=== PATIENT | female | born 1980 | race Two or more races ===

== ENCOUNTER 2019-06-15 02:33 | Emergency (ER) | payer OTHER ==
[2019-06-15 04:10] VITALS: BP 104/63; PULSE 81; TEMP 98.1
[2019-06-15] MEDS ORDERED: IBUPROFEN 600 MG TABLET (FP) PO ONE ×2 (04:38→04:57)
--- NOTE | 2019-06-15 05:35 | PDOC ---
History of Present Illness - General Chief Complaint: Pain, Acute Stated Complaint: PAIN Time Seen by Provider: 06/15/19 03:00 History Source: Patient - History of Present Illness Initial Comments: 06/15/19 05:30 39-year-old status post left foot surgery 1 month ago currently in a boot complaining of pain and swelling to the left foot. Patient reports that she accidentally banged her foot on the table while she was putting on her boot. Patient noticed some swelling to the left foot after hitting the table. Patient reports that she takes 2 Percocet tablets every 5 hours for pain. Patient is requesting pain medication at this time. Past History - Past Medical History Allergies/Adverse Reactions: Allergies Allergy/AdvReac Type Severity Reaction Status Date / Time No Known Allergies Allergy Verified 06/15/19 03:54 - Psycho Social/Smoking Cessation Hx Smoking History: Current some day smoker Have you smoked in the past 12 months: Yes Number of Cigarettes Smoked Daily: 10 Information on smoking cessation initiated: No Hx Alcohol Use: No Drug/Substance Use Hx: No Review of Systems - Review of Systems Able to Perform ROS?: Yes Is the patient limited Stateless proficient: No Musculoskeletal: Yes: Other (left foot pain) *Physical Exam - Vital Signs Last Vital Signs Temp Pulse Resp BP Pulse Ox 98.1 F 81 16 104/63 100 06/15/19 02:35 06/15/19 02:35 06/15/19 02:35 06/15/19 02:35 06/15/19 02:35 - Physical Exam General Appearance: Yes: Appropriately Dressed Extremity: positive: Other (left foot edema. no deformity) Integumentary: positive: Normal Color, Dry, Warm Neurologic: positive: Fully Oriented, Alert ED Treatment Course - RADIOLOGY Radiology Studies Ordered: Category Date Time Status ANKLE & FOOT-LEFT* [RAD] Stat Radiology 06/15/19 04:38 Taken - Medications Given in the ED: ED Medications Discontinued Medications Generic Name Dose Route Start Last Admin Trade Name Freq PRN Reason Stop Dose Admin Ibuprofen 600 mg 06/15/19 04:38 06/15/19 05:02 Motrin - PO 06/15/19 04:39 600 mg ONCE ONE Administration ED Progress Note - Progress Note Progress Note: 06/15/19 05:32 A: left foot pain P: xray: n acute fracture. patient is in a boot. will recommend podtry/ ortho follow up Discharge - Discharge Information Problems reviewed: Yes Clinical Impression/Diagnosis: Left foot pain Condition: Fair Disposition: HOME - Follow up/Referral - Patient Discharge Instructions Patient Printed Discharge Instructions: DI for Foot Pain Additional Instructions: please follow up with your wood sawyer as soon as possible. take ibuprofen every 6 hours as needed for pain Additional Instructions: * Please call your personal physician to report your Emergency Department visit and to report your progress, if any. * If there is no improvement in symptoms in 2 days call your physician. * Return to the Emergency Department for any worsening symptoms. - Post Discharge Activity Work/Back to School Note: Back to Work
== END 2019-06-15 05:49 | disposition home or self-care (01) ==
LOC: JER 02:33
DX: M79.672 Pain in left foot (principal); W22.8XXA Striking against or struck by other objects, initial encounter; Y93.89 Activity, other specified; Y92.038 Other place in apartment as the place of occurrence of the external cause; Y99.8 Other external cause status; Z98.890 Other specified postprocedural states
CPT/HCPCS: 73610-TC-LT-FY; 73630-TC-LT; 99281-25

== ENCOUNTER 2022-01-08 09:37 | Inpatient (IN) | payer OTHER ==
[2022-01-08 10:28] VITALS: BMI 19.1
[2022-01-08] MEDS ORDERED: ACETAMINOPHEN 325 MG TABLET (FP) PO PRN ×2 (12:18)
[2022-01-08] MEDS ORDERED: MAGNESIUM CITRATE 300 ML BOTTLE PO PRN (12:18)
[2022-01-08] MEDS ORDERED: DICYCLOMINE HCL 10 MG CAPSULE PO PRN (12:18)
[2022-01-08] MEDS ORDERED: IBUPROFEN 400 MG TABLET (FP) PO PRN (12:18)
[2022-01-08] MEDS ORDERED: LOPERAMIDE HCL 2 MG CAPSULE PO PRN (12:18)
[2022-01-08] MEDS ORDERED: MAGNESIUM HYDROX 2400MG/30ML ORAL SUSPENSION 30 ML CUP PO PRN (12:18)
[2022-01-08] MEDS ORDERED: BISMUTH SUBSALICYLATE 524 MG/30 ML PO PRN (12:18)
[2022-01-08] MEDS ORDERED: NICOTINE 10 MG CARTRIDGE (INHALER) IH PRN (12:18)
[2022-01-08] MEDS ORDERED: ONDANSETRON *ODT* 4 MG TABLET SL PRN (12:18)
[2022-01-08] MEDS ORDERED: BENZOCAINE/MENTHOL (CHLORASEPTIC ) LOZENGE MM PRN (12:18)
[2022-01-08] MEDS ORDERED: MAG HYDROX/AL HYDROX/SIMETH 30 ML UNIT-DOSE CUP PO PRN (12:18)
[2022-01-08] MEDS ORDERED: IBUPROFEN 600 MG TABLET (FP) PO PRN (12:18)
[2022-01-08] MEDS: hydrOXYzine PAMOATE 25 MG CAPSULE (FP) PO SCH ×3 (13:04→22:19)
[2022-01-08] MEDS: NICOTINE 14 MG/24 HOURS TOPICAL PATCH TD SCH (13:04)
[2022-01-08] MEDS: ALBUTEROL SO4 HFA INHALER IH SCH ×3 (13:04→22:20)
[2022-01-08] MEDS: PRENATAL VITAMINS W/ FOLIC ACID TABLET (FP) PO SCH (13:04)
[2022-01-08 17:18] LABS: HEMATOCRIT 38.7 % (32.4-45.2); HEMOGLOBIN 12.7 GM/dL (10.7-15.3); MCH 28.9 pg (25.7-33.7); MCHC 32.8 g/dl (32.0-36.0); MEAN CELL VOLUME 88.1 fl (80-96); MEAN PLT VOLUME 8.7 fl (7.5-11.1); PLATELET COUNT 212 10^3/uL (134-434); RBC 4.39 M/mm3 (3.60-5.2); WHITE BLOOD COUNT 7.5 K/mm3 (4.0-10.0)
[2022-01-08 17:37] LABS: ALBUMIN 3.7 g/dl (3.4-5.0); BLOOD UREA NITROGEN 17.2 mg/dL (7-18); CALCIUM 8.9 mg/dL (8.5-10.1)
[2022-01-08 17:42] LABS: CREATININE 0.7 mg/dL (0.55-1.3); TOT PROT 6.9 g/dl (6.4-8.2)
[2022-01-08] MEDS: diazePAM 5 MG TABLET PO SCH ×2 (18:11→22:17)
[2022-01-08] MEDS: MELATONIN 5 MG TABLETS PO SCH (22:17)
[2022-01-08] MEDS: THIAMINE HCL 100 MG TABLET (FP) PO SCH (22:17)
[2022-01-09] MEDS: ALBUTEROL SO4 HFA INHALER IH SCH ×3 (00:45→10:59)
[2022-01-09] MEDS: hydrOXYzine PAMOATE 25 MG CAPSULE (FP) PO SCH ×5 (06:07→21:12)
[2022-01-09] MEDS: diazePAM 5 MG TABLET PO SCH ×4 (06:07→22:51)
[2022-01-09] MEDS ORDERED: ALBUTEROL SO4 HFA INHALER IH PRN (09:39)
[2022-01-09] MEDS: METHOCARBAMOL 500 MG TABLET PO PRN ×2 (10:28→17:53)
[2022-01-09] MEDS: PRENATAL VITAMINS W/ FOLIC ACID TABLET (FP) PO SCH (10:28)
[2022-01-09] MEDS: NICOTINE 14 MG/24 HOURS TOPICAL PATCH TD SCH (11:06)
[2022-01-09] MEDS: diazePAM 5 MG TABLET PO PRN (14:00)
[2022-01-09] MEDS: MELATONIN 5 MG TABLETS PO SCH (21:12)
[2022-01-09] MEDS: THIAMINE HCL 100 MG TABLET (FP) PO SCH (21:12)
[2022-01-09] MEDS: QUEtiapine FUMARATE 50 MG TABLET PO SCH (21:12)
[2022-01-10] MEDS: hydrOXYzine PAMOATE 25 MG CAPSULE (FP) PO SCH ×5 (06:23→22:27)
[2022-01-10] MEDS: diazePAM 5 MG TABLET PO SCH ×3 (06:23→22:27)
[2022-01-10] MEDS: PRENATAL VITAMINS W/ FOLIC ACID TABLET (FP) PO SCH (10:39)
[2022-01-10] MEDS: NICOTINE 14 MG/24 HOURS TOPICAL PATCH TD SCH (10:41)
[2022-01-10] MEDS: diazePAM 5 MG TABLET PO PRN ×3 (12:52→23:46)
[2022-01-10] MEDS: METHOCARBAMOL 500 MG TABLET PO PRN ×2 (12:55→22:27)
[2022-01-10] MEDS: MELATONIN 5 MG TABLETS PO SCH (22:26)
[2022-01-10] MEDS: THIAMINE HCL 100 MG TABLET (FP) PO SCH (22:27)
[2022-01-10] MEDS: QUEtiapine FUMARATE 50 MG TABLET PO SCH (22:27)
[2022-01-11] MEDS: METHOCARBAMOL 500 MG TABLET PO PRN (05:37)
[2022-01-11] MEDS: hydrOXYzine PAMOATE 25 MG CAPSULE (FP) PO SCH ×3 (05:37→15:25)
[2022-01-11] MEDS ORDERED: diazePAM 5 MG TABLET PO SCH (06:00)
[2022-01-11 08:55] VITALS: RESP 18
[2022-01-11] MEDS: NICOTINE 14 MG/24 HOURS TOPICAL PATCH TD SCH (10:31)
[2022-01-11] MEDS: PRENATAL VITAMINS W/ FOLIC ACID TABLET (FP) PO SCH (10:32)
[2022-01-11] MEDS: diazePAM 5 MG TABLET PO PRN (10:32)
[2022-01-11 14:04] VITALS: TEMP 98
[2022-01-11 17:27] VITALS: BP 111/65; PULSE 89
[2022-01-12] MEDS ORDERED: diazePAM 5 MG TABLET PO ONE (06:00)
== END 2022-01-11 18:25 | disposition left against medical advice (07) | DRG 770 ==
LOC: YASAS 09:37 → Y3N 12:13
PROVIDERS: ADMIT Allergy & Immunology; ATTEND Surgery
PROC: HZ2ZZZZ Detoxification Services for Substance Abuse Treatment (ICD-10-PCS; principal; 2022-01-08)
DX: F10.230 Alcohol dependence with withdrawal, uncomplicated (principal); F14.20 Cocaine dependence, uncomplicated; F12.20 Cannabis dependence, uncomplicated; F16.20 Hallucinogen dependence, uncomplicated; F17.210 Nicotine dependence, cigarettes, uncomplicated; F19.24 Other psychoactive substance dependence with psychoactive substance-induced mood disorder; F31.30 Bipolar disorder, current episode depressed, mild or moderate severity, unspecified; F63.3 Trichotillomania; G47.00 Insomnia, unspecified; J45.909 Unspecified asthma, uncomplicated; Z86.59 Personal history of other mental and behavioral disorders; Z56.0 Unemployment, unspecified
CPT/HCPCS: 36415; 71046-TC-FY; 80053; 81025; 85027; 86780; 87811; C9803-CS; U0003; U0005